=== PATIENT | male | born 1980 | race American Indian/Alaskan Native ===

== ENCOUNTER 2020-07-11 07:01 | Emergency (ER) | payer SELFPAY ==
--- NOTE | 2020-07-11 07:24 | Event Note ---
ED Screening Note ED Screening Note: r flank and ruq abd pain r cva tenderness no vomiting pos nausea no penile dc This initial assessment/diagnostic orders/clinical plan/treatment(s) is/are subject to change based on patients health status, clinical progression and re- assessment by fellow clinical providers in the ED. Further treatment and workup at subsequent clinical providers discretion. Patient/guardian urged not to elope from the ED as their condition may be serious if not clinically assessed and managed. Initial orders include: ua labs
[2020-07-11 08:59] LABS: Hematocrit 38.9 % (35.5-45.6); Hemoglobin 12.9 gm/dl (11.8-15.2); Mean Corpuscular HGB Conc 33 % (32-34); Mean Corpuscular Volume 86 fl (84-94); Platelet Count 211 K/mm3 (140-440); Red Blood Count 4.54 M/mm3 (3.65-5.03); Red Cell Distribution Width 14.1 % (13.2-15.2)
[2020-07-11 09:20] LABS: Alanine Aminotransferase 9 units/L (7-56); Albumin 4.3 g/dL (3.9-5); BUN/Creatinine Ratio 11; Blood Urea Nitrogen 11 mg/dL (9-20); Calcium 8.9 mg/dL (8.4-10.2); Hemolysis Index 4
[2020-07-11] MEDS ORDERED: MORPHINE 4 MG/1 ML INJ IV ONE ×2 (11:43→15:23)
[2020-07-11] MEDS ORDERED: ONDANSETRON 4 MG/2 ML INJ IV ONE (11:43)
--- NOTE | 2020-07-11 11:45 | Emergency Department Report ---
ED General Adult HPI - General Chief complaint: Abdominal Pain Stated complaint: RIGHT SIDE PAIN Time Seen by Provider: 07/11/20 07:23 Source: patient Mode of arrival: Ambulatory Limitations: No Limitations - History of Present Illness Initial comments: The patient presents to the emergency room with a chief complaint of right flank pain that started yesterday. Patient states the pain is sharp in nature and describes it as coming and going in waves. Patient states has had some nausea but denies vomiting. Patient also complains of not being able to urinate. Patient denies chest pain, shortness breath, or headache. -: Sudden Location: abdomen (Right flank) Radiation: other (Groin) Severity scale (0 -10): 7 Quality: sharp Consistency: constant Improves with: none Worsens with: none Associated Symptoms: denies other symptoms Treatments Prior to Arrival: none - Related Data Previous Rx's Medication Instructions Recorded Last Taken Type Albuterol Mdi (or & Nicu Only) 2 puff IH Q4HR PRN #1 inhalation 07/11/20 Unknown Rx [ProAir HFA Inhaler] Amoxicillin [Amoxicillin TAB] 875 mg PO BID #20 tablet 07/11/20 Unknown Rx Azithromycin [Zithromax Z-BEATRIZ] 250 mg PO DAILY #6 tablet 07/11/20 Unknown Rx HYDROcodone/APAP 5-325 [[place] 1 each PO Q6HR PRN #12 tablet 07/11/20 Unknown Rx 5/325] predniSONE [Deltasone] 20 mg PO DAILY #15 tablet 07/11/20 Unknown Rx Allergies Allergy/AdvReac Type Severity Reaction Status Date / Time peach Allergy Hives Verified 07/11/20 15:08 peanut AdvReac Angioedema Verified 07/11/20 15:08 ED Review of Systems ROS: Stated complaint: RIGHT SIDE PAIN Other details as noted in HPI Comment: All other systems reviewed and negative Constitutional: denies: chills, fever Eyes: denies: eye pain, eye discharge, vision change ENT: denies: ear pain, throat pain Respiratory: denies: cough, shortness of breath, wheezing Cardiovascular: denies: chest pain, palpitations Endocrine: no symptoms reported Gastrointestinal: abdominal pain. denies: nausea, diarrhea Genitourinary: denies: urgency, dysuria Musculoskeletal: denies: back pain, joint swelling, arthralgia Skin: denies: rash, lesions Neurological: denies: headache, weakness, paresthesias Psychiatric: denies: anxiety, depression Hematological/Lymphatic: denies: easy bleeding, easy bruising ED Past Medical Hx - Past Medical History Previous Medical History?: No - Surgical History Past Surgical History?: Yes Additional Surgical History: tonsilectomy - Social History Smoking Status: Never Smoker Substance Use Type: None - Medications Home Medications: Home Medications Medication Instructions Recorded Confirmed Last Taken Type Albuterol Mdi (or & Nicu Only) 2 puff IH Q4HR PRN #1 inhalation 07/11/20 Unknown Rx [ProAir HFA Inhaler] Amoxicillin [Amoxicillin TAB] 875 mg PO BID #20 tablet 07/11/20 Unknown Rx Azithromycin [Zithromax Z-BEATRIZ] 250 mg PO DAILY #6 tablet 07/11/20 Unknown Rx HYDROcodone/APAP 5-325 [[place] 1 each PO Q6HR PRN #12 tablet 07/11/20 Unknown Rx 5/325] predniSONE [Deltasone] 20 mg PO DAILY #15 tablet 07/11/20 Unknown Rx ED Physical Exam - General Limitations: No Limitations General appearance: alert, in no apparent distress - Head Head exam: Present: atraumatic, normocephalic - Eye Eye exam: Present: normal appearance - ENT ENT exam: Present: mucous membranes moist - Neck Neck exam: Present: normal inspection - Respiratory Respiratory exam: Present: normal lung sounds bilaterally. Absent: respiratory distress - Cardiovascular Cardiovascular Exam: Present: regular rate, normal rhythm. Absent: systolic murmur, diastolic murmur, rubs, gallop - GI/Abdominal GI/Abdominal exam: Present: soft, normal bowel sounds. Absent: distended, tenderness - Rectal Rectal exam: Present: deferred - Extremities Exam Extremities exam: Present: normal inspection - Back Exam Back exam: Present: normal inspection - Neurological Exam Neurological exam: Present: alert, oriented X3, CN II-XII intact. Absent: motor sensory deficit - Psychiatric Psychiatric exam: Present: normal affect, normal mood - Skin Skin exam: Present: warm, dry, intact, normal color. Absent: rash ED Course Vital Signs 07/11/20 07/11/20 07/11/20 07:29 12:25 12:27 Temperature 98.7 F Pulse Rate 100 H Respiratory 20 16 18 Rate Blood Pressure 120/71 [Right] O2 Sat by Pulse 100 Oximetry 07/11/20 07/11/20 13:05 15:04 Temperature Pulse Rate 80 76 Respiratory 16 16 Rate Blood Pressure 114/68 118/76 [Right] O2 Sat by Pulse 97 98 Oximetry ED Medical Decision Making - Lab Data Result diagrams: 07/11/20 08:05 07/11/20 08:05 Lab Results 07/11/20 07/11/20 Range/Units 08:05 08:05 WBC 7.3 (4.5-11.0) K/mm3 RBC 4.54 (3.65-5.03) M/mm3 Hgb 12.9 (11.8-15.2) gm/dl Hct 38.9 (35.5-45.6) % MCV 86 (84-94) fl MCH 29 (28-32) pg MCHC 33 (32-34) % RDW 14.1 (13.2-15.2) % Plt Count 211 (140-440) K/mm3 Sodium 137 (137-145) mmol/L Potassium 4.5 (3.6-5.0) mmol/L Chloride 101.3 (98-107) mmol/L Carbon Dioxide 29 (22-30) mmol/L Anion Gap 11 mmol/L BUN 11 (9-20) mg/dL Creatinine 1.0 (0.8-1.3) mg/dL Estimated GFR > 60 ml/min BUN/Creatinine Ratio 11 % Glucose 102 H (75-100) mg/dL Calcium 8.9 (8.4-10.2) mg/dL Total Bilirubin 0.50 (0.1-1.2) mg/dL AST 11 (5-40) units/L ALT 9 (7-56) units/L Alkaline Phosphatase 76 (35-129) units/L Total Protein 6.8 (6.3-8.2) g/dL Albumin 4.3 (3.9-5) g/dL Albumin/Globulin Ratio 1.7 % Lipase 15 (13-60) units/L - Radiology Data Radiology results: report reviewed - Medical Decision Making Discussed results with patient and findings on CT Patient denies having a cough, body aches or fever Discussed with patient need to be tested for Covid Critical care attestation.: If time is entered above; I have spent that time in minutes in the direct care of this critically ill patient, excluding procedure time. ED Disposition Clinical Impression: Pneumonia Disposition: DC- TO HOME OR SELFCARE Is pt being admited?: No Does the pt Need Aspirin: No Condition: Stable Instructions: Bacterial Pneumonia (ED), Community-Acquired Pneumonia, Adult Additional Instructions: return if worse As discussed please get tested for Covid Prescriptions: Amoxicillin [Amoxicillin TAB] 875 mg PO BID #20 tablet predniSONE [Deltasone] 20 mg PO DAILY #15 tablet HYDROcodone/APAP 5-325 [[place] 5/325] 1 each PO Q6HR PRN #12 tablet PRN Reason: Pain Albuterol Mdi (or & Nicu Only) [ProAir HFA Inhaler] 2 puff IH Q4HR PRN #1 inhalation PRN Reason: Shortness Of Breath Azithromycin [Zithromax Z-BEATRIZ] 250 mg PO DAILY #6 tablet Referrals: CECILIA BOYD [Other] - 3-5 Days Time of Disposition: 16:05
--- NOTE | 2020-07-11 15:42 | Cat Scan Report ---
CT abdomen pelvis wo con INDICATION: right flank pain. COMPARISON: None TECHNIQUE: Abdominal and pelvic CT exam performed. All CT scans at this location are performed using CT dose reduction for ALARA by means of automated exposure control. FINDINGS: CT ABDOMEN and PELVIS: Lung Bases: There is moderate quantity of consolidation seen within the posterior basal segment of th e right lower lobe. Groundglass opacities are seen also in the bilateral lung bases. Associated inter lobular septal thickening. Liver: No significant abnormality. Biliary: No significant abnormality. Spleen: No significant abnormality. Pancreas: No significant abnormality. Adrenals: No significant abnormality. Kidneys: No significant abnormality. Lymphatics: No lymphadenopathy. Vasculature: No significant abnormality. Bowel: No significant abnormality. Normal appendix. Pelvis: No significant abnormality. Osseous Structures: No aggressive osseous lesion. Small sclerotic lesion right iliac bone is consiste nt with a bone island. Additional Findings: None IMPRESSION: 1. Consolidation seen in the right lower lobe with associated bilateral groundglass opacities concern ing for pneumonia. Signer Name: Adal Bermudez MD Signed: 07/11/2020 3:37 PM Workstation Name: [id number]
[2020-07-11 16:46] VITALS: BP 118/64
== END 2020-07-11 17:05 | disposition home or self-care (01) ==
LOC: ED 07:01
DX: J18.9 Pneumonia, unspecified organism (principal); Z79.899 Other long term (current) drug therapy; Z91.010 Allergy to peanuts; Z91.018 Allergy to other foods; Z90.49 Acquired absence of other specified parts of digestive tract
CPT/HCPCS: 36415; 74176; 80053; 83690; 85027; 96374; 96375; 96376; 99284; J2270; J2405